=== PATIENT | female | born 1960 | race African-American/Black ===

== ENCOUNTER 2020-09-27 03:21 | Emergency (ER) | payer OTHER ==
[2020-09-27 03:54] LABS: #Basophils 0.1 thou/uL (0.0-0.2); #Eosinphils 0.6 thou/uL (0.0-0.7); #Lymphocytes 5.5 thou/uL (1.20-3.40); %Basophils 0.4 % (0.0-1.0); %Lymphocytes 45.2 % (21.0-51.0); %Monocytes 7.9 % (0.0-10.0); %Neutrophils 41.5 % (42.0-75.0); Hemoglobin 14.8 g/dL (12.0-16.0); Mean Corpuscular HGB CONC 35.2 g/dL (32.0-36.0); Mean Corpuscular Hemoglobin 30.7 pg (27.0-31.0); Mean Corpuscular Volume 87.1 fL (78.0-98.0); Mean Platelet Volume 6.4 fL (7.4-10.4); Platelet Count 441 thou/uL (130-400); RBC Distribution Width 13.1 % (11.5-14.5); Red Blood Cell (RBC) Count 4.81 mill/uL (4.20-5.40); White Blood Cell (WBC) Count 12.1 thou/uL (4.8-10.8)
[2020-09-27 04:11] LABS: ALT (SGPT) 18 U/L (8-55); AST (SGOT) 21 U/L (5-34); Albumin 4.5 g/dL (3.4-4.8); Alkaline Phosphatase 118 U/L (40-110); Anion Gap 16 mmol/L (10-20); BUN (Urea Nitrogen) 10 mg/dL (9.8-20.1); Bilirubin, Total 0.2 mg/dL (0.2-1.2); Calc. Creatinine Clearance 0 mL/min (70-130); Calcium 9.3 mg/dL (7.8-10.44); Carbon Dioxide 21 mmol/L (23-31); Chloride 103 mmol/L (98-107); Globulin 3.5 g/dL (2.4-3.5); Glucose 103 mg/dL (80-115); Lipase 35 U/L (8-78); Potassium 4.2 mmol/L (3.5-5.1); Sodium 136 mmol/L (136-145)
[2020-09-27] MEDS ORDERED: Metoclopramide 10 MG/10 ML UDCUP ONE (05:12)
[2020-09-27] MEDS ORDERED: Metoclopramide HCl 10 MG/2 ML VIAL ONE (05:12)
[2020-09-27] MEDS ORDERED: diphenhydrAMINE 50 MG/ML VIAL ONE (05:12)
[2020-09-27 06:16] LABS: Troponin I Less than 0.010 ng/mL (< 0.028)
== END 2020-09-27 07:34 | disposition home or self-care (01) ==
LOC: ERS 03:21
DX: R51.9 Headache, unspecified (principal); R07.9 Chest pain, unspecified; E11.9 Type 2 diabetes mellitus without complications; I10 Essential (primary) hypertension; F17.210 Nicotine dependence, cigarettes, uncomplicated; Z79.899 Other long term (current) drug therapy; Z79.84 Long term (current) use of oral hypoglycemic drugs
CPT/HCPCS: 36415; 71045; 80053; 83690; 84484; 85025; 93005; 96365; 96366; 96375; J1200; J2765